=== PATIENT | male | born 2000 | race African-American/Black ===

== ENCOUNTER 2023-07-27 13:48 | Emergency (ER) | payer OTHER ==
[~2023-07-27] VITALS: Ht 188 cm; Wt 100.8 kg
[2023-07-27 14:59] LABS: BASO % 0.3 % (0.0-1.0); EOS # 0.1 10^3/uL (0.0-0.5); HEMATOCRIT 45.2 % (42.0-52.0); HEMOGLOBIN 15.3 g/dl (13.5-17.5); LYMPH # 2.2 10^3/uL (1.5-5.0); LYMPH % 32.5 % (24.0-44.0); MEAN CORPUSCULAR HEMOGLOBIN 31.2 pg (27.0-33.0); MEAN CORPUSCULAR HGB CONC 33.8 g/dl (32.0-36.5); MEAN CORPUSCULAR VOLUME 92.2 fl (80.0-96.0); MONO # 0.4 10^3/uL (0.0-0.8); MONO % 5.4 % (2.0-8.0); NEUTROPHILS # 4.1 10^3/uL (1.5-8.5); NEUTROPHILS % 60.7 % (36.0-66.0); PLATELET COUNT, AUTOMATED 216 10^3/uL (150-450); WHITE BLOOD COUNT 6.8 10^3/uL (4.0-10.0)
[2023-07-27] MEDS: KETOROLAC 30 MG/ML 1ML VIAL IV ONE (15:00)
[2023-07-27] MEDS: ONDANSETRON 4MG 2ML VIAL IV ONE (15:04)
[2023-07-27 15:05] LABS: ERYTHROCYTE SEDIMENTATION RATE 30 mm/hr (0-15)
[2023-07-27 15:26] LABS: BLOOD UREA NITROGEN 13 MG/DL (9-23); CALCIUM LEVEL 8.8 MG/DL (8.5-10.1); CARBON DIOXIDE LEVEL 29 MMOL/L (20-31); CHLORIDE LEVEL 107 MMOL/L (98-107); CREATININE FOR GFR 1.12 MG/DL (0.70-1.30); GLOMERULAR FILTRATION RATE > 60.0 (>60); GLUCOSE, FASTING 92 MG/DL (60-100); POTASSIUM SERUM 4.8 MMOL/L (3.5-5.1); SODIUM LEVEL 141 MMOL/L (136-145)
[2023-07-27 15:43] LABS: MONO REFLEX EBV COMP NEGATIVE (NEGATIVE)
[2023-07-27] MEDS ORDERED: ISOVUE-370 76% 100ML VIAL As Ordered ONE (16:45)
[2023-07-27] MEDS ORDERED: IBUP-1022 PO (17:44)
[2023-07-27] MEDS ORDERED: HOME MED LIST COMPLETE! XX SCH (17:45)
[2023-07-27 17:57] VITALS: BP 113/66; TEMP 99; O2SAT 99
[2023-07-27] MEDS ORDERED: AMOX500C PO (18:15)
[2023-07-27] MEDS ORDERED: PRED20TA PO (18:15)
[2023-07-27] MEDS: AMOXICILLIN 500 MG CAP PO ONE (18:24)
[2023-07-29 16:09] LABS: EBV VIRAL CAPSID AG IgM <36.0 U/mL (0.0-35.9)
== END 2023-07-27 18:33 | disposition home or self-care (01) ==
LOC: M ED 13:48
DX: J03.90 Acute tonsillitis, unspecified (principal); J04.0 Acute laryngitis; Z79.2 Long term (current) use of antibiotics; Z79.52 Long term (current) use of systemic steroids; Z79.1 Long term (current) use of non-steroidal anti-inflammatories (NSAID)
CPT/HCPCS: 70491; 80048; 85025; 85652; 86140; 86308; 86664; 86665; 87880; 96374; 96375; 99283; J1100; J1885; J2405; Q9967

== ENCOUNTER → 2023-10-29 | Outpatient (CLI) | payer OTHER ==
[~2023-10-29] MED LIST: AMOX500C PO; IBUP-1022 PO; PRED20TA PO
== END ==
LOC: M OUTALCOH 07:33
PROVIDERS: ATTEND Psychiatry & Neurology Psychiatry
DX: Z03.89 Encounter for observation for other suspected diseases and conditions ruled out (principal)